=== PATIENT | male | born 1970 | race Two or more races ===

== ENCOUNTER 2024-09-23 15:14 | Emergency (ER) | payer OTHER ==
[2024-09-23 15:44] LABS: Basophils # (A) 0.02 10*3/uL (0.00-0.10); Basophils % (A) 0.3 %; Eosinophils # (A) 0.05 10*3/uL (0.04-0.35); Eosinophils % (A) 0.8 %; HCT 41.7 % (39.6-50.0); HGB 14.8 g/dL (13.0-17.0); Lymphocytes # (A) 1.63 10*3/uL (0.90-5.00); MCH 32.3 pg (27.0-32.0); MCHC 35.5 g/dL (32.0-37.0); Neutrophils # (A) 4.05 10*3/uL (1.80-7.70); Neutrophils % (A) 64.7 %; Platelet Count 264 10*3/uL (140-440); RBC 4.58 10*6/uL (4.40-5.60); RDW 12.1 % (11.5-14.5); WBC 6.26 10*3/uL (4.50-10.00)
[2024-09-23 15:57] LABS: ALT 37 U/L (4-49); AST 31 U/L (17-59); African American GFR (CKD) >90 (>60 ml/min/1.73 sqM); Albumin 4.2 g/dL (3.5-5.0); Alkaline Phosphatase 56 U/L (38-126); Anion Gap 6 mmol/L; Blood Urea Nitrogen 20 mg/dL (9-20); Calcium 9.3 mg/dL (8.4-10.2); Carbon Dioxide 27 mmol/L (22-30); Chloride 106 mmol/L (98-107); Glucose 99 mg/dL (74-99); Lipase 141 U/L (23-300); Non-African American GFR(CKD) >90 (>60 ml/min/1.73 sqM); Potassium 3.9 mmol/L (3.5-5.1); Sodium 139 mmol/L (137-145); Total Bilirubin 0.4 mg/dL (0.2-1.3)
[2024-09-23 16:07] LABS: INR 0.9 (<1.2); Partial Thromboplastin Time 23.8 sec (22.0-30.0); Prothrombin Time 10.5 sec (10.0-12.5)
--- NOTE | 2024-09-23 16:13 | ED ---
General Adult HPI - General Chief complaint: Recheck/Abnormal Lab/Rx Stated complaint: chest pain Time Seen by Provider: 09/23/24 15:20 Source: patient Mode of arrival: EMS Limitations: no limitations - History of Present Illness Initial comments: 54-year-old male with no reported past medical history who presents to the emergency department from primary care office. Patient was at home when he began having substernal chest pressure. Pain lasted for approximately 10 minutes before he went into his primary care to get it evaluated. States that he has had the pain before. Occasionally affects him 2-3 times per year but he has never had it evaluated. They completed an EKG which they thought was abnormal. He reports that the pain subsided at that time. He was given a baby aspirin. They then called EMS. EMS did not provide him with anything because he was asymptomatic. Reports that he does have a family history of heart disease. Denies history of high blood pressure or high cholesterol. Patient is hypertensive upon transfer. He denies calf pain or swelling. No shortness of breath. No ripping or tearing sensation to his back. No numbness, tingling or weakness in his extremities. No other alleviating, precipitating or modifying factors - Related Data Allergies Allergy/AdvReac Type Severity Reaction Status Date / Time No Known Allergies Allergy Verified 09/23/24 15:25 Review of Systems ROS Statement: Those systems with pertinent positive or pertinent negative responses have been documented in the HPI. ROS Other: All systems not noted in ROS Statement are negative. Past Medical History Past Medical History: No Reported History History of Any Multi-Drug Resistant Organisms: None Reported Past Surgical History: No Surgical Hx Reported Past Psychological History: No Psychological Hx Reported Smoking Status: Never smoker Past Alcohol Use History: Daily Past Drug Use History: Marijuana General Exam Limitations: no limitations General appearance: alert, in no apparent distress Head exam: Present: atraumatic, normocephalic, normal inspection Eye exam: Present: normal appearance, PERRL, EOMI. Absent: scleral icterus, conjunctival injection, periorbital swelling ENT exam: Present: normal exam, mucous membranes moist Neck exam: Present: normal inspection. Absent: tenderness, meningismus, lymphadenopathy Respiratory exam: Present: normal lung sounds bilaterally. Absent: respiratory distress, wheezes, rales, rhonchi, stridor Cardiovascular Exam: Present: regular rate, normal rhythm, normal heart sounds. Absent: systolic murmur, diastolic murmur, rubs, gallop, clicks GI/Abdominal exam: Present: soft, normal bowel sounds. Absent: distended, tenderness, guarding, rebound, rigid Extremities exam: Present: normal inspection, full ROM, normal capillary refill. Absent: tenderness, pedal edema, joint swelling, calf tenderness Back exam: Present: normal inspection Neurological exam: Present: alert, oriented X3, CN II-XII intact Psychiatric exam: Present: normal affect, normal mood Skin exam: Present: warm, dry, intact, normal color. Absent: rash Course Vital Signs 09/23/24 15:16 Temperature 98.5 F Pulse Rate 62 Respiratory 18 Rate Blood Pressure 162/90 O2 Sat by Pulse 98 Oximetry Medical Decision Making - Medical Decision Making Was pt. sent in by a medical professional or institution (, PA, TAX DIRECTOR, urgent care, hospital, or [place] health care facility...) When possible be specific @ -[No] Did you speak to anyone other than the patient for history (EMS, parent, family, police, friend...)? What history was obtained from this source @ -[No] Did you review nursing and triage notes (agree or disagree)? Why? @ -[I reviewed and agree with nursing and triage notes] Were old charts reviewed (outside hosp., previous admission, EMS record, old EKG, old radiological studies, urgent care reports/EKG's, [place] health [facility] facility records)? Report findings @ -[No old charts were reviewed] Differential Diagnosis (chest pain, altered mental status, abdominal pain women, abdominal pain men, vaginal bleeding, weakness, fever, dyspnea, syncope, headache, dizziness, GI bleed, back pain, seizure, CVA, palpatations, mental health, musculoskeletal)? @ -[not applicable] EKG interpreted by me (3pts min.). @ -Yes and demonstrates sinus bradycardia with a rate of 59. UT interval 182. QRS 122. QTc of 391. No acute ST segment elevations or depressions X-rays interpreted by me (1pt min.). @ -[None done] CT interpreted by me (1pt min.). @ -[None done] U/S interpreted by me (1pt. min.). @ -[None done] What testing was considered but not performed or refused? (CT, X-rays, U/S, labs)? Why? @ -[None] What meds were considered but not given or refused? Why? @ -[None] Did you discuss the management of the patient with other professionals (professionals i.e. , PA, TAX DIRECTOR, lab, RT, psych nurse, nephrology social worker, shoe repairer apprentice, teacher, staff nuclear weapons officer, employment case manager)? Give summary @ -[No] Was smoking cessation discussed for >3mins.? @ -[No] Was critical care preformed (if so, how long)? @ -[No] Were there social determinants of health that impacted care today? How? (Homelessness, low income, unemployed, alcoholism, drug addiction, t ransportation, low edu. Level, literacy, decrease access to med. care, prison, rehab)? @ -[No] Was there de-escalation of care discussed even if they declined (Discuss DNR or withdrawal of care, Hospice)? DNR status @ -[No] What co-morbidities impacted this encounter? (DM, HTN, Smoking, COPD, CAD, C ancer, CVA, ARF, Chemo, Hep., AIDS, mental health diagnosis, sleep apnea, morbid obesity)? @ -[None] Was patient admitted / discharged? Hospital course, mention meds given and route, prescriptions, significant lab abnormalities, going to OR and other pertinent info. @ -[hospital course] Undiagnosed new problem with uncertain prognosis? @ -[No] Drug Therapy requiring intensive monitoring for toxicity (Heparin, Nitro, Insulin, Cardizem)? @ -[No] Were any procedures done? @ -[No] Diagnosis/symptom? @ -[default] Acute, or Chronic, or Acute on Chronic? @ -[default] Uncomplicated (without systemic symptoms) or Complicated (systemic symptoms)? @ -[default] Side effects of treatment? @ -[No] Exacerbation, Progression, or Severe Exacerbation? @ -[No] Poses a threat to life or bodily function? How? (Chest pain, [place], [place], pneumonia, PE, COPD, DKA, ARF, appy, cholecystitis, CVA, Diverticulitis, Homicidal, Suicidal, threat to staff... and all critical care pts) @ -[No] - Lab Data Result diagrams: 09/23/24 15:30 09/23/24 15:30 Lab Results 09/23/24 09/23/24 09/23/24 Range/Units 15:30 15:30 15:30 WBC 6.26 (4.50-10.00) 10*3/uL RBC 4.58 (4.40-5.60) 10*6/uL Hgb 14.8 (13.0-17.0) g/dL Hct 41.7 (39.6-50.0) % MCV 91.0 (80.0-97.0) fL MCH 32.3 H (27.0-32.0) pg MCHC 35.5 (32.0-37.0) g/dL Plt Count 264 (140-440) 10*3/uL MPV 10.0 (9.5-12.2) fL Immature Gran % (Auto) 0.2 % Neutrophils % 64.7 % Lymphocytes % 26.0 % Monocytes % 8.0 % Eosinophils % 0.8 % Basophils % 0.3 % Immature Gran # 0.01 (0.00-0.04) 10*3/uL Neutrophils # 4.05 (1.80-7.70) 10*3/uL Lymphocytes # 1.63 (0.90-5.00) 10*3/uL Monocytes # 0.50 (0.20-1.00) 10*3/uL Eosinophils # 0.05 (0.04-0.35) 10*3/uL Basophils # 0.02 (0.00-0.10) 10*3/uL PT 10.5 (10.0-12.5) sec INR 0.9 (<1.2) APTT 23.8 (22.0-30.0) sec Sodium 139 (137-145) mmol/L Potassium 3.9 (3.5-5.1) mmol/L Chloride 106 (98-107) mmol/L Carbon Dioxide 27 (22-30) mmol/L Anion Gap 6 mmol/L BUN 20 (9-20) mg/dL Creatinine 0.92 (0.66-1.25) mg/dL Est GFR (CKD-EPI)AfAm >90 (>60 ml/min/1.73 sqM) Est GFR (CKD-EPI)NonAf >90 (>60 ml/min/1.73 sqM) Glucose 99 (74-99) mg/dL Calcium 9.3 (8.4-10.2) mg/dL Magnesium 2.0 (1.6-2.3) mg/dL Total Bilirubin 0.4 (0.2-1.3) mg/dL AST 31 (17-59) U/L ALT 37 (4-49) U/L Alkaline Phosphatase 56 (38-126) U/L Troponin I (0.000-0.034) ng/mL Total Protein 7.0 (6.3-8.2) g/dL Albumin 4.2 (3.5-5.0) g/dL Lipase 141 (23-300) U/L 09/23/24 09/23/24 Range/Units 15:30 18:08 WBC (4.50-10.00) 10*3/uL RBC (4.40-5.60) 10*6/uL Hgb (13.0-17.0) g/dL Hct (39.6-50.0) % MCV (80.0-97.0) fL MCH (27.0-32.0) pg MCHC (32.0-37.0) g/dL Plt Count (140-440) 10*3/uL MPV (9.5-12.2) fL Immature Gran % (Auto) % Neutrophils % % Lymphocytes % % Monocytes % % Eosinophils % % Basophils % % Immature Gran # (0.00-0.04) 10*3/uL Neutrophils # (1.80-7.70) 10*3/uL Lymphocytes # (0.90-5.00) 10*3/uL Monocytes # (0.20-1.00) 10*3/uL Eosinophils # (0.04-0.35) 10*3/uL Basophils # (0.00-0.10) 10*3/uL PT (10.0-12.5) sec INR (<1.2) APTT (22.0-30.0) sec Sodium (137-145) mmol/L Potassium (3.5-5.1) mmol/L Chloride (98-107) mmol/L Carbon Dioxide (22-30) mmol/L Anion Gap mmol/L BUN (9-20) mg/dL Creatinine (0.66-1.25) mg/dL Est GFR (CKD-EPI)AfAm (>60 ml/min/1.73 sqM) Est GFR (CKD-EPI)NonAf (>60 ml/min/1.73 sqM) Glucose (74-99) mg/dL Calcium (8.4-10.2) mg/dL Magnesium (1.6-2.3) mg/dL Total Bilirubin (0.2-1.3) mg/dL AST (17-59) U/L ALT (4-49) U/L Alkaline Phosphatase (38-126) U/L Troponin I <0.012 <0.012 (0.000-0.034) ng/mL Total Protein (6.3-8.2) g/dL Albumin (3.5-5.0) g/dL Lipase (23-300) U/L Disposition Clinical Impression: Chest pain Disposition: HOME SELF-CARE Condition: Stable Instructions (If sedation given, give patient instructions): Chest Pain (DC) Additional Instructions: Please follow-up with your primary care doctor in 2-4 days. I recommend an echo and possible stress test. Return to the emergency department for any new or worsening symptoms Is patient prescribed a controlled substance at d/c from ED?: No Referrals: Saritha Bentley DO [Primary Care Provider] - 1-2 days Time of Disposition: 18:50
--- NOTE | 2024-09-23 16:24 | XR ---
EXAMINATION TYPE: XR chest 2V DATE OF EXAM: 09/23/2024 CLINICAL INDICATION: Male, 54 years old with history of Chest Pain, TECHNIQUE: Frontal and lateral views of the chest are obtained. COMPARISON: None FINDINGS: Linear density projecting over right upper lung on frontal view is not identified on latera l view and presumed external to patient. There is no focal air space opacity, pleural effusion, or pn eumothorax seen. The cardiac silhouette size is upper limits of normal. The osseous structures are intact. IMPRESSION: No acute pulmonary process. [facility], , 09/23/2024 4:21 PM
[2024-09-23] MEDS: ASPIRIN 81 MG PO STA (18:13)
[2024-09-23 18:55] VITALS: BP 167/97; PULSE 51; RESP 16; TEMP 98.3
== END 2024-09-23 19:14 | disposition home or self-care (01) ==
LOC: EC 15:14
DX: R07.89 Other chest pain (principal); R00.1 Bradycardia, unspecified
CPT/HCPCS: 36415; 71046; 80053; 83690; 83735; 84484; 85025; 85610; 85730; 93005; 99285

== ENCOUNTER → 2024-09-30 | Outpatient (CLI) | payer OTHER ==
--- NOTE | 2024-09-30 11:27 | CA ---
Exercise Stress Test Report Name: Shane Cortes Exam Date: 09/30/2024 09:41 Exam Location: [facility] Ht (in): 71 Wt (lb): 200 BSA: 2.11 Ordering Phys: Saritha Bentley DO Referring Phys: Saritha Bentley DO Technologist: Darren Ledezma Age: 54 Gender: M : 1970 Procedure CPT: Indications: R07.89 chest pain ICD-10 Codes: Patient History: CHEST PAIN, HTN, FAMILY HX OF HEART DISEASE Medications: NONE Meds past 24 hrs: Pretest Chest Pain: STRESS TEST Elpidio Protocol Exercise Duration (min:sec): 12:[address] Depressions (mm): Angina Score: Lamar Score: Resting HR (bpm): 71 Peak HR (bpm): 147 Resting BP (mmHg): 152 / 87 Peak BP (mmHg): 222 / 92 MPHR: 167 Target HR: 142 % MPHR: 88 METS: 12.1 Total Dose: Peak Dose: Atropine: Double Product: 38264 BP Response: Stress Termination: TARGET HR/MAX EXERTION Stress Symptoms: NO SYMPTOMS Stress Summary: ECG ANALYSIS Resting ECG: Normal sinus rhythm with right bundle branch block Stress ECG: No significant ST-T wave changes are diagnostic for ischemia. Occasional PVC noticed during a beginning of exercise protocol. No 60 mg sustained arrhythmias. No significant sustained arrhythmias noticed CONCLUSIONS Good exercise tolerance achieving 12.1 METS Normal clinical response to treadmill Hypertensive at baseline with hypertensive response to exercise Nonischemic ECG response to treadmill exercise Overall low probability for severe obstructive CAD Dr Edson Alexandra (Electronically Signed) Final Date: 30 September 2024 11:26
--- NOTE | 2024-10-01 08:07 | NM ---
EXAMINATION TYPE: NM stress cardiolite complete DATE OF EXAM: 09/30/2024 COMPARISON: NONE CLINICAL INDICATION: Male, 54 years old with history of R07.89 chest pain; TECHNIQUE: After the intravenous administration of 10.3 mCi Tc 99m Sestamibi - Rest images obtained 90 minutes post injection. The patient exercised using a MADISYN protocol and 1 minute prior to peak exercise was injected with 26 mCi Tc 99m Sestamibi - Stress images obtained 24 minutes post injection . FINDINGS: Targeted heart rate (142 BPM) was achieved during performance of the study (147 bpm achieved). Total exercise time 12 minutes. Review of stress and rest SPECT images demonstrates fixed perfusion defect involving the mid to basal inferior wall suggesting diaphragmatic attenuation artifact. Additional fi xed defect involving the mid to basal anterior wall though more pronounced on rest also suggesting at tenuation artifact. No distinct reversibility is seen. Gated analysis shows normal wall motion with an estimated left ventricular ejection fraction of 66 %. TID is calculated at 0.85, within normal li mits. IMPRESSION: Fixed defects involving the mid to basal anterior and inferior moreno favored to represent areas of at tenuation artifact. No scintigraphic evidence for reversible ischemia. [facility], , 10/01/2024 8:05 AM
== END | disposition home or self-care (01) ==
LOC: RADNMMAIN 07:44
PROVIDERS: ATTEND Family Medicine
DX: I10 Essential (primary) hypertension (principal); I45.19 Other right bundle-branch block
CPT/HCPCS: 93017; 78452; A9500